=== PATIENT | female | born 1950 | race Caucasian/White ===

== ENCOUNTER 2016-12-19 15:35 | Emergency (ER) | payer OTHER, BC ==
[2016-12-19 15:55] VITALS: RESP 16; TEMP 98.4
--- NOTE | 2016-12-19 16:25 | EDPHY ---
HPI/HX/ROS/PE/MDM Narrative: CHIEF COMPLAINT: Chest discomfort HISTORY OF PRESENT ILLNESS: This patient is a 66-year-old female referred to the Emergency Department from Urgent Care for complaint of superficial left- sided chest discomfort beginning yesterday evening and gradually increasing in severity over time. She describes the pain as a burning "nerve-like" pain initially localized to a small area of her left anterior chest but states that it has been increasing in diameter and spreading to her posterior back since presentation. Area of discomfort is in a band extending from her axilla posteriorly toward her thoracic spine then also across her anterior chest. She also complains of intermittent chills over the past two hours and one episode of nausea this afternoon that has since subsided. She denies shortness of breath, diaphoresis, rash, headache, vomiting, diarrhea, or cold or cough symptoms. She presents concerned that she has shingles, though she did have a shingles vaccine this year. She denies history of diabetes, hyperlipidemia, hypercholesteremia, blood clots, or coronary disease. No familial history of CAD. REVIEW OF SYSTEMS: Aside from elements discussed in the HPI, a comprehensive 10-point review of systems was reviewed and is negative. Patient did extensive amount of gardening over the weekend and initially thought that the discomfort was secondary to muscle strain. PAST MEDICAL HISTORY: 1. PACs (metoprolol), followed by Dr. Mullen. 2. Eczema FAMILY HISTORY: No history of CAD or blood clots. 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 at bedside. PHYSICAL EXAM: VITAL SIGNS: Reviewed by me GENERAL: Well-developed, well-nourished, resting comfortably in no respiratory distress. HEENT: Atraumatic. Eyes: No icterus, no injection. Mouth: moist mucous membranes. No erythema or lesions. Neck: supple with no adenopathy. LUNGS: Clear to auscultation bilaterally, no wheezes, rhonchi or rales. CARDIAC: Regular rate and rhythm, no rubs, murmurs or gallops. CHEST: No chest wall tenderness but apparent hypersensitivity to touch over the left anterior chest and axillary region. ABDOMEN: Soft, nontender, nondistended, bowel sounds normal. BACK: No CVA tenderness. EXTREMITIES: No trauma. No edema. Range of motion is normal throughout. NEURO: Alert and oriented, grossly nonfocal. SKIN: Warm and dry, no rash, eczema over left upper arm. PSYCHIATRIC: Normal mentation, no agitation. ED Course: 66-year-old female presents with complaint of superficial burning chest discomfort localized in a strip extending from her left anterior chest to her left posterior back beginning yesterday and increasing in severity over time. At time of presentation she is mildly hypertensive at 160/82. She is alert and well-appearing. No significant findings on exam; no evidence of vesicles suggestive of shingles. She has no cardiac risk factors. I recommended to her that we proceed with labs for additional screening. She declines a chest x-ray at this time. Will proceed with EKG and labs, including D-dimer and troponin. Labs obtained and are unremarkable. D-dimer and troponin are negative. EKG, as outlined below, is unchanged from previous. I discussed these results with the patient as well as suspicion of early shingles. She will be discharged home with instructions to begin taking Valtrex and follow-up with her PCP this week. She will be given a script for Percocet to use PRN for pain. She will be discharged home in good condition with customary return precautions. EKG INTERPRETATION: The 12 lead EKG was interpreted by myself: Sinus rhythm, rate 63; incomplete RBBB; no ischemic changes. See hard copy and/or "tracemaster" electronic copy for interpretation. EKG is similar to prior obtained in February 2014. MDM: Differential diagnoses for the patient's symptom complex was considered including but not limited to myocardial ischemia, acute coronary syndrome, pulmonary embolus, chest wall pain, herpes zoster, pleural inflammation and pulmonary infectious causes. - Data Points Laboratory Results: Laboratory Results 12/19/16 17:04 12/19/16 17:04 12/19/16 12/19/16 12/19/16 17:04 17:04 17:04 WBC 7.39 10^3/uL 10^3/uL (3.80-9.50) RBC 4.63 10^6/uL 10^6/uL (4.18-5.33) Hgb 14.4 g/dL g/dL (12.6-16.3) Hct 41.5 % % (38.0-47.0) MCV 89.6 fL fL (81.5-99.8) MCH 31.1 pg pg (27.9-34.1) MCHC 34.7 g/dL g/dL (32.4-36.7) RDW 12.9 % % (11.5-15.2) Plt Count 239 10^3/uL 10^3/uL (150-400) MPV 10.9 fL fL (8.7-11.7) Neut % (Auto) 50.8 % % (39.3-74.2) Lymph % (Auto) 21.1 % % (15.0-45.0) [place] % (Auto) 8.4 % % (4.5-13.0) Eos % (Auto) 17.5 % H % (0.6-7.6) Baso % (Auto) 1.9 % H % (0.3-1.7) Nucleat RBC Rel Count 0.0 % % (0.0-0.2) Absolute Neuts (auto) 3.76 10^3/uL 10^3/uL (1.70-6.50) Absolute Lymphs (auto) 1.56 10^3/uL 10^3/uL (1.00-3.00) Absolute Monos (auto) 0.62 10^3/uL 10^3/uL (0.30-0.80) Absolute Eos (auto) 1.29 10^3/uL H 10^3/uL (0.03-0.40) Absolute Basos (auto) 0.14 10^3/uL H 10^3/uL (0.02-0.10) Absolute Nucleated RBC 0.00 10^3/uL 10^3/uL (0-0.01) Immature Gran % 0.3 % % (0.0-1.1) Immature Gran # 0.02 10^3/uL 10^3/uL (0.00-0.10) D-Dimer 0.36 ug/mLFEU ug/mLFEU (0.00-0.50) Sodium 142 mEq/L mEq/L (134-144) Potassium 4.1 mEq/L mEq/L (3.5-5.2) Chloride 107 mEq/L mEq/L (97-110) Carbon Dioxide 26 mEq/l mEq/l (22-31) Anion Gap 9 mEq/L mEq/L (8-16) BUN 14 mg/dL mg/dL (7-23) Creatinine 0.7 mg/dL mg/dL (0.6-1.0) Estimated GFR > 60 Glucose 90 mg/dL mg/dL (70-100) Calcium 9.3 mg/dL mg/dL (8.5-10.4) Troponin I < 0.012 ng/mL ng/mL (0-0.034) Medications Given: Discontinued Medications Lidocaine (Lidoderm 5%) 1 ea TD EDNOW ONE Stop: 12/19/16 18:24 Last Admin: 12/19/16 18:50 Dose: 1 ea Valacyclovir HCl (Valtrex) 500 mg PO EDNOW ONE Stop: 12/19/16 18:23 Last Admin: 12/19/16 19:13 Dose: 500 mg General Time Seen by Provider: 12/19/16 16:23 Initial Vital Signs: Initial Vital Signs Temperature (C) 36.9 C 12/19/16 15:52 Heart Rate 62 12/19/16 15:52 Respiratory Rate 16 12/19/16 15:52 Blood Pressure 160/82 H 12/19/16 15:52 O2 Sat (%) 98 12/19/16 15:52 O2 Delivery Mode Room Air Allergies/Adverse Reactions: gluten [Gluten] Allergy (Intermediate, Verified 05/23/13 18:17) Rash nitrofurantoin macrocrystalline [From Macrodantin] Allergy (Intermediate, Verified 12/19/16 15:51) Hives hydrocodone bitartrate [From Vicodin] Allergy (Mild, Verified 12/19/16 15:51) migraine ibuprofen Allergy (Mild, Verified 12/19/16 15:51) GI acetaminophen [From Vicodin] Allergy (Verified 02/17/15 12:55) Home Medications: Medication Instructions Recorded Metoprolol Succinate 05/18/13 Gabapentin [Neurontin 100 MG (RX)] 02/17/15 Pramipexole Di-HCl [Pramipexole ER] 1.5 mg PO 12/19/16 Valacyclovir HCl [Valtrex] 1,000 mg PO TID #21 tab 12/19/16 oxyCODONE/APAP 5/325 [Percocet 1 tab PO TID PRN #20 tab 12/19/16 5/325 (*)] Departure - Departure Disposition: Home, Routine, Self-Care Clinical Impression: Chest wall discomfort, possible early shingles Condition: Good Instructions: Shingles (ED), Chest Wall Pain (ED) Additional Instructions: 1. Take Valtrex as prescribed for suspicion of possible early shingles. Continue to take this until your follow-up with your primary care provider. 2. Take Percocet as prescribed, as needed for pain. You may also obtain over the counter lidocaine 4% patches or lidocaine jelly which may help with your discomfort. 3. Call tomorrow to schedule a follow-up appointment with your primary care provider this week. 4. Return to the Emergency Department if you experience high uncontrollable fever, severe pain, difficulty breathing, nausea or vomiting, or for other serious concerns. Referrals: Denisha Cheung MD [Primary Care Provider] - As per Instructions Prescriptions: oxyCODONE/APAP 5/325 [Percocet 5/325 (*)] 1 tab PO TID PRN #20 tab PRN Reason: Pain Valacyclovir HCl [Valtrex] 1,000 mg PO TID #21 tab Report Scribed for: Etelvina Wise Report Scribed by: Luba Garner Date of Report: 12/19/16 Time of Report: 16:24 Physician Review and Approval Statement: Portions of this note were transcribed by a medical care administrator. I personally performed a history, physical exam, medical decision making, and confirmed accuracy of information the transcribed note.
--- NOTE | 2016-12-19 16:40 | CPEKG ---
Heart Rate: 63 RR Interval: 952 P-R Interval: 180 QRSD Interval: 106 QT Interval: 444 QTC Interval: 455 P Raiford: 68 QRS Raiford: 58 T Wave Ra[place]ord: 35 EKG Severity - ABNORMAL ECG - EKG Impression: SINUS RHYTHM EKG Impression: INCOMPLETE RIGHT BUNDLE BRANCH BLOCK Electronically Signed By: Etelvina Wise 19-Dec-2016 23:07:34
[2016-12-19 17:40] LABS: % IMMATURE GRANULYOCYTES 0.3 % (0.0-1.1); ABSOLUTE IMMATURE GRANULOCYTES 0.02 10^3/uL (0.00-0.10); ADD DIFF? NO; ADD MORPH? NO; ADD SCAN? NO; ATYPICAL LYMPHOCYTE FLAG 0 (0-99); FRAGMENT RBC FLAG 0 (0-99); HEMATOCRIT 41.5 % (38.0-47.0); HEMOGLOBIN 14.4 g/dL (12.6-16.3); LEFT SHIFT FLG 0 (0-99); LIPEMIA HEMOLYSIS FLAG 90 (0-99); MEAN CELL HEMOGLOBIN 31.1 pg (27.9-34.1); MEAN CELL HEMOGLOBIN CONCENTR. 34.7 g/dL (32.4-36.7); MEAN CELL VOLUME 89.6 fL (81.5-99.8); MEAN PLATELET VOLUME 10.9 fL (8.7-11.7); PLATELET CLUMPS FLAG 0 (0-99); PLATELET COUNT 239 10^3/uL (150-400); RED BLOOD CELL COUNT 4.63 10^6/uL (4.18-5.33); RED CELL DISTRIBUTION WIDTH 12.9 % (11.5-15.2)
[2016-12-19 17:47] LABS: ANION GAP 9 mEq/L (8-16); CALCIUM 9.3 mg/dL (8.5-10.4); CARBON DIOXIDE 26 mEq/l (22-31); CHLORIDE 107 mEq/L (97-110); CREATININE 0.7 mg/dL (0.6-1.0); GLOMERULAR FILTRATION RATE > 60; GLUCOSE 90 mg/dL (70-100); POTASSIUM 4.1 mEq/L (3.5-5.2); SODIUM 142 mEq/L (134-144)
[2016-12-19 17:59] LABS: TROPONIN I < 0.012 ng/mL (0-0.034)
[2016-12-19] MEDS ORDERED: valACYclovir 500 MG TAB PO ONE (18:22)
[2016-12-19] MEDS ORDERED: LIDOCAINE 5% 1 EA PATCH TD ONE (18:23)
[2016-12-19 19:14] VITALS: BP 136/78; PULSE 63; O2SAT 97
[2016-12-19] MEDS ORDERED: PATCH REMOVAL 1 EA PATCH TD SCH (21:00)
== END 2016-12-19 19:13 | disposition home or self-care (01) ==
DX: R07.89 Other chest pain (principal)

== ENCOUNTER → 2017-05-01 | Outpatient (CLI) | payer OTHER, BC | LOC: FIMAGING 15:23 | PROVIDERS: ATTEND Obstetrics & Gynecology Gynecology | DX: Z12.31 Encounter for screening mammogram for malignant neoplasm of breast (principal); Z85.3 Personal history of malignant neoplasm of breast | CPT/HCPCS: G0202 ==

== ENCOUNTER 2017-11-15 06:35 | Emergency (ER) | payer OTHER ==
--- NOTE | 2017-11-15 06:45 | CPEKG ---
Heart Rate: 72 RR Interval: 833 P-R Interval: 168 QRSD Interval: 106 QT Interval: 416 QTC Interval: 456 P Empire: 72 QRS Empire: 63 T Wave Empire: 53 EKG Severity - ABNORMAL ECG - EKG Impression: SINUS RHYTHM EKG Impression: INCOMPLETE RIGHT BUNDLE BRANCH BLOCK Electronically Signed By: Yvette Cruz 15-Nov-2017 15:02:33
--- NOTE | 2017-11-15 07:04 | EDPHY ---
H & P Stated Complaint: IRREGULAR HEARTRATE Time Seen by Provider: 11/15/17 07:01 HPI/ROS: CHIEF COMPLAINT: Irregular heart rate HISTORY OF PRESENT ILLNESS: 67-year-old female with a history of celiac disease and PACs presents with an irregular heartbeat. She has a long history of PACs and PVCs and is currently taking metoprolol. Over the last week she has noted increased irregular heartbeats. She also had 1 episode of dizziness yesterday, similar to prior episodes of vertigo. Unclear if she had palpitations at that time. She took an extra metoprolol this morning at 5:00 a.m.. No chest pain or shortness of breath. 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 PACs with work up with . dermatitis herpetaformis - Social History Smoking Status: Never smoked - Physical Exam Exam: General Appearance: Alert, pleasant Eyes: Pupils equal and round, no conjunctival pallor or injection ENT, Mouth: Mucous membranes moist Neck: Normal inspection Respiratory: Lungs are clear to auscultation Cardiovascular: Regular rate and rhythm Gastrointestinal: Abdomen is soft and nontender Neurological: A&O, nonfocal, normal gait Skin: Warm and dry, no rash Extremities: Nontender, no pedal edema Psychiatric: Mood and affect normal Constitutional: Initial Vital Signs Temperature (C) 36.6 C 11/15/17 06:35 Heart Rate 73 11/15/17 06:35 Respiratory Rate 16 11/15/17 06:35 Blood Pressure 132/70 H 11/15/17 06:35 O2 Sat (%) 95 11/15/17 06:35 O2 Delivery Mode Room Air Allergies/Adverse Reactions: gluten [Gluten] Allergy (Intermediate, Verified 11/15/17 06:37) Rash nitrofurantoin macrocrystalline [From Macrodantin] Allergy (Intermediate, Verified 11/15/17 06:37) Hives hydrocodone bitartrate [From Vicodin] Allergy (Mild, Verified 11/15/17 06:37) migraine ibuprofen Allergy (Mild, Verified 11/15/17 06:37) GI acetaminophen [From Vicodin] Allergy (Verified 11/15/17 06:37) Home Medications: Medication Instructions Recorded Metoprolol Succinate 05/18/13 Gabapentin [Neurontin 100 MG (RX)] 02/17/15 Pramipexole Di-HCl [Pramipexole ER] 1.5 mg PO 12/19/16 Desloratadine [Clarinex] 5 mg PO 11/15/17 Medical Decision Making - Diagnostics EKG Interpretation: EKG interpreted by me reveals normal sinus rhythm, rate 72, incomplete right bundle branch block. Interpretation: Borderline EKG. Similar to EKG dated . ED Course/Re-evaluation: This patient presents with palpitations. Stat EKG reveals normal sinus rhythm. telemetry monitor reveals occasional PACs and PVCs; no other dysrhythmia. CBC and Chem 7 are normal. She is safe and stable for discharge home. She will follow up with Dr. Baez in the office. Consideration for outpatient Holter, if she continues to have increased palpitations. Differential Diagnosis: Includes though not limited to atrial fibrillation, SVT, ventricular dysrhythmia , hypotension - Data Points Laboratory Results: Laboratory Results 11/15/17 06:50 11/15/17 06:50 11/15/17 11/15/17 06:50 06:50 WBC 6.19 10^3/uL 10^3/uL (3.80-9.50) RBC 4.80 10^6/uL 10^6/uL (4.18-5.33) Hgb 14.9 g/dL g/dL (12.6-16.3) Hct 43.7 % % (38.0-47.0) MCV 91.0 fL fL (81.5-99.8) MCH 31.0 pg pg (27.9-34.1) MCHC 34.1 g/dL g/dL (32.4-36.7) RDW 12.5 % % (11.5-15.2) Plt Count 244 10^3/uL 10^3/uL (150-400) MPV 10.4 fL fL (8.7-11.7) Neut % (Auto) 53.4 % % (39.3-74.2) Lymph % (Auto) 19.9 % % (15.0-45.0) [place] % (Auto) 9.4 % % (4.5-13.0) Eos % (Auto) 15.2 % H % (0.6-7.6) Baso % (Auto) 1.9 % H % (0.3-1.7) Nucleat RBC Rel Count 0.0 % % (0.0-0.2) Absolute Neuts (auto) 3.31 10^3/uL 10^3/uL (1.70-6.50) Absolute Lymphs (auto) 1.23 10^3/uL 10^3/uL (1.00-3.00) Absolute Monos (auto) 0.58 10^3/uL 10^3/uL (0.30-0.80) Absolute Eos (auto) 0.94 10^3/uL H 10^3/uL (0.03-0.40) Absolute Basos (auto) 0.12 10^3/uL H 10^3/uL (0.02-0.10) Absolute Nucleated RBC 0.00 10^3/uL 10^3/uL (0-0.01) Immature Gran % 0.2 % % (0.0-1.1) Immature Gran # 0.01 10^3/uL 10^3/uL (0.00-0.10) Sodium 142 mEq/L mEq/L (135-145) Potassium 4.1 mEq/L mEq/L (3.5-5.2) Chloride 105 mEq/L mEq/L (97-110) Carbon Dioxide 29 mEq/l mEq/l (22-31) Anion Gap 8 mEq/L mEq/L (8-16) BUN 13 mg/dL mg/dL (7-23) Creatinine 0.7 mg/dL mg/dL (0.6-1.0) Estimated GFR > 60 Glucose 92 mg/dL mg/dL (70-100) Calcium 9.2 mg/dL mg/dL (8.5-10.4) Departure - Departure Disposition: Home, Routine, Self-Care Clinical Impression: PAC (premature atrial contraction), PVC (premature ventricular contraction) Condition: Good Instructions: Heart Palpitations (ED) Referrals: Denisha Cheung MD [Primary Care Provider] - As per Instructions Javier Baez MD [Medical Doctor] - As per Instructions Stand Alone Forms: Airline Excuse
[2017-11-15 07:10] LABS: PLATELET COUNT 244 10^3/uL (150-400)
[2017-11-15 08:12] VITALS: BP 127/75
== END 2017-11-15 08:10 | disposition home or self-care (01) ==
DX: I49.1 Atrial premature depolarization (principal); I49.3 Ventricular premature depolarization

== ENCOUNTER → 2018-03-09 | Outpatient (CLI) | payer OTHER ==
--- NOTE | 2018-03-10 10:48 | ECHO ---
[email or web address] [address] [address] Main: [phone] Fax: Transthoracic Echocardiogram Name: ALE MAURO MR#: [id number] Study Date: 03/09/2018 Study Time: 01:56 PM Date of : 1950 Age: 68 year(s) Height: ( ) Weight: ( ) BSA: Gender: Female Examination: Echo Indication: Rapid Heart Beat, PVCs Image Quality: Contrast: Requested by: Brice Momin BP: / Heart Rate: Rhythm: Normal sinus rhythm with ectopy Indication: Rapid Heart Beat, PVCs Procedure Staff Cuff Folder: Mario Ku RDCS Reading Physician: Javier Baez MD Requesting Provider: Conclusions: Normal global systolic LV function. EF is 70 %. Diastolic dysfunction is present. . Mild mitral valve regurgitation is present. Measurements: Chambers Valvular Assessment AV/MV Valvular Assessment TV/PV Normal Normal Normal Name Value Range Name Value Range Name Value Range Ao Camila (MM): 3.0 cm (2.2 cm-3.7 AV Vmax: 1.70 m/s (1 m/s-1.7 TR Vmax: 2.76 mm/s ( - ) cm) m/s) TR PGmax: 30 mmHg ( - ) IVSd (2D): 0.6 cm (0.6 cm-1.1 AV maxP mmHg ( - ) syst. PAP: 35 mmHg ( - ) cm) AV meanP mmHg ( - ) PV Vmax: 0.99 m/s (0.6 m/s-0.9 LVDd (2D): 4.7 cm (3.9 cm-5.3 LVOT Vmax: 0.92 m/s (0.7 m/s-1.1 m/s) cm) m/s) PV PGmax: 4 mmHg ( - ) LVDs (2D): 2.8 cm (2.1 cm-4 DAXA (Vmax): 1.5 cm2 ( - ) cm) DAXA (VTI): 1.6 cm ( - ) LVPWd (2D): 0.9 cm ( - ) MV E Vmax: 0.93 m/s ( - ) LVOTd 1.9 cm 1.9 cm mm MV A Vmax: 0.75 m/s ( - ) LVEF (2D): 70 (>=54 %) MV E/A: 1.24 ( - ) Continued Measurements: Chambers Valvular Assessment AV/MV Valvular Assessment TV/PV Name Value Name Value Name Value LADs Lon.4 cm MV Annulus: 3.0 cm CVP (est.): 5 mmHg LA Area: 12.1 cm2 MV E' Septal: 0.05 m/s LA Volume: 36 ml MV E/E' Septal: 17.40 MV E/E' Lateral: 10.20 Patient: ALE MAURO Study Date: 03/09/2018 Page 1 of 2 01:56 PM MR ERO: 0.020 cm2 MR PISA radius: 2 mm MR Reg. Volume: 3 ml Findings: Left Ventricle: Normal size left ventricle. No LV hypertrophy. Normal global systolic LV function. EF is 70 %. No regional wall motion abnormality. Diastolic dysfunction is present. . Right Ventricle: Normal size right ventricle. Normal RV function. Left Atrium: The left atrium is normal in size. Right Atrium: The right atrium is normal in size. Mitral Valve: The mitral valve is normal in appearance. Mild mitral valve regurgitation is present. No mitral stenosis is present. Aortic Valve: The aortic valve is tri-leaflet and functions normally. Tricuspid Valve: The tricuspid valve appears normal. Trivial tricuspid valve regurgitation. The pulmonary artery pressure is normal. Pulmonic Valve: The pulmonic valve is normal in appearance and function. Aorta: The aorta is normal. Pericardium: No pericardial effusion. (No Signature Object) Patient: ALE MAURO Study Date: 03/09/2018 Page 2 of 2 01:56 PM [id number]
== END ==
LOC: FCP 13:46
PROVIDERS: ATTEND Internal Medicine Cardiovascular Disease
DX: R07.9 Chest pain, unspecified (principal); R00.0 Tachycardia, unspecified; I34.0 Nonrheumatic mitral (valve) insufficiency

== ENCOUNTER → 2018-09-05 | Outpatient (CLI) | payer OTHER | LOC: FIMAGING 15:10 | PROVIDERS: ATTEND Obstetrics & Gynecology Gynecology | DX: Z12.31 Encounter for screening mammogram for malignant neoplasm of breast (principal); Z85.3 Personal history of malignant neoplasm of breast ==